=== PATIENT | male | born 1990 | race Caucasian/White ===

== ENCOUNTER 2017-08-16 06:58 | Emergency (ER) | payer OTHER ==
[2017-08-16] MEDS ORDERED: MECLIZINE 12.5 MG TABLET PO STA (07:31)
[2017-08-16] MEDS ORDERED: MECLIZINE 12.5 MG TABLET PO ONE (07:40)
--- NOTE | 2017-08-16 07:41 | ED Physician Documentation ---
History of Present Illness - Stated complaint Stated Complaint: DIZZY - Chief complaint Chief Complaint: Neuro - Additonal information Additional information: hx from pt 26 y/o male awoke the AM with postional vertigo no TUBBS no CP no palp no numbness or weakness no ear pain or tinnitus Review of Systems Constitutional: denies: Fever Ears: denies: Ear pain, Tinnitus/ringing Cardiac: denies: Chest pain / pressure, Palpitations Respiratory: denies: Dyspnea, Cough GI: denies: Abdominal Pain Neurologic: reports: Other (dizzy). denies: Focal weakness, Numbness, Headache PD PAST MEDICAL HISTORY - Past Medical History Past Medical History: No - Past Surgical History Past Surgical History: Yes General: Splenectomy - Present Medications Home Medications: Ambulatory Orders Medication Instructions Recorded Confirmed Meclizine [Antivert] 25 mg PO Q6H PRN #20 tablet 08/16/17 - Allergies Allergies/Adverse Reactions: Allergies Allergy/AdvReac Type Severity Reaction Status Date / Time No Known Drug Allergies Allergy Verified 08/16/17 07:09 - Social History Does the pt smoke?: No Smoking Status: Never smoker - Immunizations Immunizations are current?: Yes PD ED PE NORMAL - Vitals Vital signs reviewed: Yes - General General: Alert and oriented X 3 - HEENT HEENT: PERRL, EOMI (nystagmus lookin right) - Neck Neck: Supple, no meningeal sign - Cardiac Cardiac: RRR - Respiratory Respiratory: No respiratory distress, Clear bilaterally - Abdomen Abdomen: Soft, Non tender - Derm Derm: Normal color - Neuro Neuro: Alert and oriented X 3, acidizer helper 2-12 intact, No motor deficit, No sensory deficit, Normal speech Results - Vitals Vitals: Vital Signs - 24 hr 08/16/17 07:05 Temperature 36.6 C Heart Rate 64 Respiratory 16 Rate Blood Pressure 133/75 H O2 Saturation 98 Oxygen O2 Source Room air - EKG (time done) 0717 Rate: Rate (enter#) (53) Rhythm: NSR Intervals: Normal [facility] Ischemia: ST elevation c/w repol Computer interpretation: Disagree with computer (computer states acute pericardidits (not c/w pt sx) I feel more likely repol - pt has no cardiac sx of CP SOA or palp and EKG was done from triage "per protocol") PD MEDICAL DECISION MAKING - ED course ED course: pt with positional vertigo and nystagmus looking right and a normal neuro exam EKG ordered and performed at triage "per protocol" and shows some concave up St elev with J pt notching likely repol, EKG machine reading acute pericarditis - as pt has absolutely no cardiac sx such as CP pap or SOA or anything to suggest he has a cardiac issue I suspect this is just repol better after meclizine able to ambulate will dc with same and muari instructions Departure - Departure Disposition: Home, Self Care Clinical Impression: Vertigo Condition: Good Instructions: ED Vertigo Unspecified Follow-Up: [facility] [Provider Group] (for a recheck this week and for duty status ) Prescriptions: Meclizine [Antivert] 25 mg PO Q6H PRN #20 tablet PRN Reason: Dizziness Comments: The dizziness may last several days You can take the medication I prescribed to ease the symptoms. Doing the mauri maneuvers we provided instructions for can sometimes help roll any particles out of the balance chambers of you inner ear and resolve the symptoms. No driving until better Follow up [place] for duty status Return if worse
[2017-08-16 08:45] VITALS: BP 134/69
== END 2017-08-16 08:50 | disposition home or self-care (01) ==
LOC: ED 06:58
DX: R42 Dizziness and giddiness (principal)
CPT/HCPCS: 99283; A9270

== ENCOUNTER 2017-10-04 16:02 | Outpatient (CLI) | payer OTHER ==
--- NOTE | 2017-10-05 08:05 | MRI Report ---
EXAM: LEFT MIDFOOT MRI WITHOUT CONTRAST EXAM DATE: 10/04/2017 05:07 PM. CLINICAL HISTORY: Left 5th metatarsal pain. COMPARISON: None. TECHNIQUE: Multiplanar, multisequence T1-weighted and fluid-sensitive sequences of the midfoot withou t contrast. Other: None. FINDINGS: Bones: No fractures or subluxations. No marrow edema. No bone lesions. Articular Cartilage: Unremarkable. Ligaments: The visualized intertarsal, intermetatarsal, and tarsometatarsal ligaments are intact. Thi s includes the Lisfranc ligament. The visualized collateral ligaments are intact. Tendons: At the plantar lateral aspect of the foot, the peroneus longus just plantar to the cuboid sh ows abnormal thickening and increased T2 signal with some surrounding increased T2 signal in the soft tissues. Peroneus brevis appears normal. Series 1501 image 34, series 801 image 8. Musculature: No edema or fatty atrophy. Other: No effusions. The visualized portion of the tarsal tunnel is unremarkable. No intermetatarsal bursitis. The subcutaneous tissues are unremarkable. IMPRESSION: 1. Bones are normal, no stress fracture, stress reaction or marrow edema. 2. Significant type I signal change seen in the peroneus longus tendon just plantar to the cuboid bon e. Some surrounding soft tissue swelling and edema also noted. 3. The other tendons of plantar flexion and anteflexion appear unremarkable. 4. TMT ligaments including Lisfranc ligament are normal. [facility] MUSCULOSKE[facility]IOLOGY SECTION Referring Provider Line: [phone] SITE ID: [id number]
== END 2017-10-04 16:03 | disposition home or self-care (01) ==
LOC: DI 16:02
PROVIDERS: ATTEND Family Medicine
DX: M79.672 Pain in left foot (principal)